=== PATIENT | female | born 1955 | race Caucasian/White ===

== ENCOUNTER 2016-03-28 10:30 | Observation (INO) | payer BC ==
[~2016-03-28] VITALS: Ht 156.2 cm; Wt 62.8 kg
[~2016-03-28 10:30] MED LIST: AMBIEN10 MG PO; BENTYL10 MG PO; BUSPAR10 MG PO; CARAFATE1 GM/10 ML PO; CATAPRES0.1 MG PO; ESTRACE1 MG PO; HYDROCHLOROTHIA25 MG PO; LIPITOR10 MG PO; LISINOPRIL40 MG PO; NORVASC10 MG PO; PHENERGAN25 M1 PO; PRILOSEC20 MG PO; TRAZODONE HCL50 MG PO; TRIAMCINOLONE A15 GM TOP
[2016-03-28] MEDS ORDERED: TRIAMCINOLONE A15 G2 TOP (11:40)
[2016-03-28] MEDS ORDERED: AMBIEN10 MG PO (11:42)
[2016-03-29] MEDS ORDERED: ULTRAM50 MG PO (15:08)
[2016-03-29] MEDS ORDERED: TYLENOL325 MG PO (15:09)
== END 2016-03-29 15:20 | disposition short-term general hospital (02) ==
LOC: OBS 10:30
PROVIDERS: ADMIT Family Medicine
DX: E87.1 Hypo-osmolality and hyponatremia (principal); E87.6 Hypokalemia; E86.0 Dehydration; I10 Essential (primary) hypertension; G44.229 Chronic tension-type headache, not intractable; F32.9 Major depressive disorder, single episode, unspecified; G47.00 Insomnia, unspecified; M81.0 Age-related osteoporosis without current pathological fracture; K21.9 Gastro-esophageal reflux disease without esophagitis; M15.9 Polyosteoarthritis, unspecified; Z88.6 Allergy status to analgesic agent; Z79.899 Other long term (current) drug therapy; Z90.49 Acquired absence of other specified parts of digestive tract; Z90.710 Acquired absence of both cervix and uterus; Z98.890 Other specified postprocedural states
CPT/HCPCS: A9150; G0378; G0379